=== PATIENT | female | born 1985 | race Caucasian/White ===

== ENCOUNTER 2021-05-31 10:11 | Emergency (ER) | payer OTHER ==
[~2021-05-31] VITALS: Ht 172.7 cm; Wt 97.0 kg
[2021-05-31 11:13] VITALS: BP 140/73
[2021-05-31] MEDS ORDERED: KETOROLAC 60 MG/2 ML VIAL. IM ONE (11:45)
[2021-05-31 11:50] LABS: BASO % 1 % (0-3); EOS # 0.1 x10^3/uL (0.0-0.7); EOS % 2 % (0-3); HEMATOCRIT 44.4 % (36.0-47.0); HEMOGLOBIN 14.6 g/dL (12.0-15.5); LYMPH # 2.3 x10^3/uL (1.0-4.8); LYMPH % 31 % (24-48); MEAN CORPUSCULAR HEMOGLOBIN 28 pg (25-35); MEAN CORPUSCULAR HGB CONC 33 g/dL (31-37); MEAN CORPUSCULAR VOLUME 85 fL (79-100); MONO # 0.5 x10^3/uL (0.0-1.1); MONO % 7 % (0-9); NEUT # 4.5 x10^3uL (1.8-7.7); NEUT % 60 % (31-73); PLATELET COUNT 400 x10^3/uL (140-400); RED BLOOD COUNT 5.23 x10^6/uL (3.50-5.40); RED CELL DISTRIBUTION WIDTH 15.2 % (11.5-14.5); WHITE BLOOD COUNT 7.5 x10^3/uL (4.0-11.0)
[2021-05-31 11:59] LABS: CALCIUM 8.9 mg/dL (8.5-10.1); CREATININE 0.8 mg/dL (0.6-1.0); GFR 81.6; POTASSIUM 4.7 mmol/L (3.5-5.1)
[2021-05-31 12:05] LABS: ALBUMIN 3.8 g/dL (3.4-5.0); ALBUMIN/GLOBULIN RATIO 1.1 (1.0-1.7); TOTAL BILIRUBIN 0.4 mg/dL (0.2-1.0); TOTAL PROTEIN 7.4 g/dL (6.4-8.2)
[2021-05-31 12:31] LABS: BACTERIA,URINE 0 /HPF (0-FEW); BILIRUBIN,URINE NEG (NEG); CLARITY,URINE CLEAR; COLOR,URINE YELLOW; GLUCOSE,URINE NEG (NEG); NITRITE,URINE NEG (NEG); RBC,URINE OCC /HPF (0-2); SQUAMOUS EPITHELIAL CELL,UR MANY /LPF; UROBILINOGEN,URINE 0.2 mg/dL (0.2 mg/dL); WBC,URINE 0 /HPF (0-4)
--- NOTE | 2021-05-31 12:51 | PHYS DOC ---
Past History Additional Past Medical Histor: A0 (TONY KANG) Past Surgical History: Appendectomy, (x3), Tubal ligation Additional Past Surgical Histo: uterine ablation (TONY KANG) General Adult EDM: Chief Complaint: ABDOMINAL PAIN HPI: HPI: Patient is a 35 year old A0 female who presents with left lower quadrant pain that began Thursday and significantly worsened yesterday. Patient states that her period began on the same day as her pain, so she assumed they were menstrual cramps. However, with the pain worsening yesterday, she is more concerned. She has point tenderness in the left adnexal region. Patient has history of tubal ligation and uterine ablation, but continues to have very light bleeding during the time of menstruation. She denies nausea, vomiting, diarrhea, constipation, dysuria, hematuria, urinary frequency, urinary incontinence. (TONY KANG) Review of Systems: Review of Systems: Constitutional: Denies fever, chills or generalized weakness Eyes: Denies change in visual acuity, visual field deficits or discharge HENT: Denies ear pain, nasal congestion or sore throat Respiratory: Denies cough or shortness of breath Cardiovascular: Denies chest pain, palpitations or edema GI: See HPI : See HPI Musculoskeletal: Denies back pain or joint pain Integument: Denies rash or other skin lesion Neurologic: Denies headache, focal weakness or sensory changes (TONY KANG) Current Medications: Current Meds: Current Medications Medications (Trade) Dose Ordered Sig/Abelardo Start Time Stop Time Status Last Admin Dose Admin Ketorolac Tromethamine (Toradol Im) 60 mg 1X ONCE 05/31/21 11:45 05/31/21 11:57 DC 05/31/21 12:17 60 MG (TONY KANG) Allergies: Allergies: Allergies Coded Allergies Type Severity Reaction Last Updated Verified No Known Drug Allergies 05/31/21 No (TONY KANG) Physical Exam: PE: Constitutional: Well developed, well nourished, no acute distress, non-toxic appearance. Cardiovascular: Heart rate regular rhythm, no murmur. Lungs & Thorax: Bilateral breath sounds clear to auscultation. Abdomen: Bowel sounds normal, soft, point tenderness in the left lower quadrant near the adnexal region with involuntary guarding and no rebound tenderness, nonsurgical abdomen, no peritoneal signs, no masses, no pulsatile masses. Skin: Warm, dry, no erythema, no rash. Back: No tenderness, no CVA tenderness. Extremities: No tenderness, no cyanosis, no clubbing, ROM intact, no edema. (TONY KANG) Current Patient Data: Labs: Laboratory Tests Test 05/31/21 11:27 05/31/21 12:07 05/31/21 12:12 White Blood Count 7.5 x10^3/uL (4.0-11.0) Red Blood Count 5.23 x10^6/uL (3.50-5.40) Hemoglobin 14.6 g/dL (12.0-15.5) Hematocrit 44.4 % (36.0-47.0) Mean Corpuscular Volume 85 fL (79-100) Mean Corpuscular Hemoglobin 28 pg (25-35) Mean Corpuscular Hemoglobin Concent 33 g/dL (31-37) Red Cell Distribution Width 15.2 % (11.5-14.5) H Platelet Count 400 x10^3/uL (140-400) Neutrophils (%) (Auto) 60 % (31-73) Lymphocytes (%) (Auto) 31 % (24-48) Monocytes (%) (Auto) 7 % (0-9) Eosinophils (%) (Auto) 2 % (0-3) Basophils (%) (Auto) 1 % (0-3) Neutrophils # (Auto) 4.5 x10^3uL (1.8-7.7) Lymphocytes # (Auto) 2.3 x10^3/uL (1.0-4.8) Monocytes # (Auto) 0.5 x10^3/uL (0.0-1.1) Eosinophils # (Auto) 0.1 x10^3/uL (0.0-0.7) Basophils # (Auto) 0.0 x10^3/uL (0.0-0.2) Sodium Level 140 mmol/L (136-145) Potassium Level 4.7 mmol/L (3.5-5.1) Chloride Level 103 mmol/L (98-107) Carbon Dioxide Level 28 mmol/L (21-32) Anion Gap 9 (6-14) Blood Urea Nitrogen 13 mg/dL (7-20) Creatinine 0.8 mg/dL (0.6-1.0) Estimated GFR (Cockcroft-Gault) 81.6 BUN/Creatinine Ratio 16 (6-20) Glucose Level 103 mg/dL (70-99) H Calcium Level 8.9 mg/dL (8.5-10.1) Total Bilirubin 0.4 mg/dL (0.2-1.0) Aspartate Amino Transferase (AST) 19 U/L (15-37) Alanine Aminotransferase (ALT) 23 U/L (14-59) Alkaline Phosphatase 65 U/L (46-116) Total Protein 7.4 g/dL (6.4-8.2) Albumin 3.8 g/dL (3.4-5.0) Albumin/Globulin Ratio 1.1 (1.0-1.7) Lipase 75 U/L (73-393) Urine Collection Type Clean catch Urine Color Yellow Urine Clarity Clear Urine pH 5.0 Urine Specific [place] 1.025 Urine Protein Neg (NEG-TRACE) Urine Glucose (UA) Neg mg/dL (NEG) Urine Ketones (Stick) Neg mg/dL (NEG) Urine Blood Small (NEG) Urine Nitrite Neg (NEG) Urine Bilirubin Neg (NEG) Urine Urobilinogen Dipstick 0.2 mg/dL (0.2 mg/dL) Urine Leukocyte Esterase Neg (NEG) Urine RBC Occ /HPF (0-2) Urine WBC 0 /HPF (0-4) Urine Squamous Epithelial Cells Many /LPF Urine Bacteria 0 /HPF (0-FEW) POC Urine HCG, Qualitative hcg negative (Negative) Vital Signs: Vital Signs Date Time Temp Pulse Resp B/P (MAP) Pulse Ox O2 Delivery O2 Flow Rate FiO2 05/31/21 11:13 98.2 50 16 140/73 (95) 99 (TONY KANG) Radiology/Procedures: Radiology/Procedures: PROCEDURE: US PELVIS W/TV US PELVIS W/TV History: Reason: LLQ tender / Spl. Instructions: / History: Comparison: None Technique: Grayscale and color Doppler imaging of the pelvis was performed using transabdominal and transvaginal technique. Findings: The uterus measures 8.6 x 5.6 x 5.2 cm. Mild heterogeneous appearance. There are regions of calcification within the lower uterine segment. Retroverted uterus. The endometrial stripe measures 8 mm. Right ovary measures 3.7 x 2.4 x 1.8 cm. Left ovary measures 3.1 x 1.7 x 1.6 cm. Normal Doppler flow to the ovaries. No adnexal masses are seen. IMPRESSION: 1. Mild heterogeneous appearance of the uterus with calcifications in the lower uterine segment, may relate to prior postoperative changes or infection. Electronically signed by: Kevin Alford DO (05/31/2021 1:05 PM) [facility] (TONY KANG) Heart Score: C/O Chest Pain: No (TONY KANG) Course & Med Decision Making: Course & Med Decision Making Pertinent Labs and Imaging studies reviewed. (See chart for details) Patient is an otherwise healthy 35-year-old female who presents with left lower quadrant tenderness for the past 5 days. At first, pain was similar in nature and intensity to menstrual cramping, however got worse yesterday. Patient has history of 3 C-sections, tubal ligation, uterine ablation. Work-up today will include labs, urinalysis as well as pelvic ultrasound. Work-up is largely reassuring. Ultrasound shows some calcifications of the uterus, which is consistent with postoperative changes. Patient has no other indication of infection on work-up today. 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 Patient understands and is agreeable to discharge plan. (TONY KANG) Course & Med Decision Making I was the Attending physician on the above date of service of this patient. This patient was evaluated, examined, treated, and dispositioned from the emergency department by the mid-level practitioner. Although I was working at the time , no assistance was requested. Electronically signed, Nilda Chavez DO (NILDA CHAVEZ DO) Carrie Disclaimer: Carrie Disclaimer: This electronic medical record was generated, in whole or in part, using a voice recognition dictation system. (TONY KANG) Departure Departure: Impression: Primary Impression: Left lower quadrant abdominal tenderness Qualified Codes: R10.814 - Left lower quadrant abdominal tenderness Disposition: HOME / SELF CARE / HOMELESS Condition: STABLE Referrals: HONG CAAL (PCP) Patient Instructions: Abdominal or Pelvic Ultrasound, [id number], Pelvic Pain, Female, [id number] Additional Instructions: EMERGENCY DEPARTMENT GENERAL DISCHARGE INSTRUCTIONS Thank you for coming to [facility] (ED) today and trusting us with you care. We trust that you had a positivie experience in our Emergency Department. If you wish to speak to the department management, you may call the director at . YOUR FOLLOW UP INSTRUCTIONS ARE FOLLOWS: 1. Make an appointment at your convenience with your [employer] specialist for further evaluation and management. 2. The Emergency Physician has interpreted your ultrasound. The imaging sp ecialist also reviewed them. If there is a change in the findings, you will be notified in 48 hours when at all possible. 3. Take [id number] NSAIDs such as Advil (ibuprofen) or Aleve (naproxen) for pain control. ADDITIONAL INSTRUCTIONS AND INFORMATION: 1. Your care today has been supervised by a physician who is specially trained in emergency care. Many problems require more than one evaluation for a complete diagnosis and treatment. We recommend that you schedule your follow up appointment as recommended to ensure complete treatment of you illness or injury. If you are unable to obtain follow up care and continue to have a problem, or if your condition worsens, we recommend that you return to the ED. 2. We are not able to safely determine your condition over the phone nor are we able to give sound medical advice over the phone. For these safety reasons, if you call for medical advice we will ask you to come to the ED for further evaluation. 3. If you have any questions regarding these discharge instructions please call the ED at . SAFETY INFORMATION: In the interest of safety, wellness, and injury prevention; we encourage you to wear your seat belt, if you smoke; quite smoking, and we encourage family to use a protective helmet for bicycling and other sporting events that present an increased risk for head injury. IF YOUR SYMPTOMS WORSEN OR NEW SYMPTOMS DEVELOP, OR YOU HAVE CONCERNS ABOUT YOUR CONDITION; OR IF YOUR CONDITION WORSENS WHILE YOU ARE WAITING FOR YOUR FOLLOW UP APPOINTMENT; EITHER CONTACT YOUR PRIMARY CARE DOCTOR, THE PHYSICIAN WHOSE NAME AND NUMBER YOU WERE GIVEN, OR RETURN TO THE ED IMMEDIATELY. TONY KANG May 31, 2021 12:51 NILDA CHAVEZ DO May 31, 2021 17:25
--- NOTE | 2021-05-31 13:07 | RAD ---
US PELVIS W/TV History: Reason: LLQ tender / Spl. Instructions: / History: Comparison: None Technique: Grayscale and color Doppler imaging of the pelvis was performed using transabdominal and t ransvaginal technique. Findings: The uterus measures 8.6 x 5.6 x 5.2 cm. Mild heterogeneous appearance. There are regions of calcific ation within the lower uterine segment. Retroverted uterus. The endometrial stripe measures 8 mm. Right ovary measures 3.7 x 2.4 x 1.8 cm. Left ovary measures 3.1 x 1.7 x 1.6 cm. Normal Doppler flow to the ovaries. No adnexal masses are seen. IMPRESSION: 1. Mild heterogeneous appearance of the uterus with calcifications in the lower uterine segment, may relate to prior postoperative changes or infection. Electronically signed by: Kevin Alford DO (05/31/2021 1:05 PM) [facility]
== END 2021-05-31 13:38 | disposition home or self-care (01) ==
LOC: ER 10:11
DX: R10.814 Left lower quadrant abdominal tenderness (principal); Z90.89 Acquired absence of other organs; Z98.890 Other specified postprocedural states; Z98.51 Tubal ligation status
CPT/HCPCS: 36415; 76830; 76856; 80053; 81001; 81025; 83690; 85025; 96372; 99284; J1885